=== PATIENT | female | born 1980 | race Caucasian/White ===

== ENCOUNTER 2021-04-21 16:46 | Outpatient (CLI) | payer OTHER, SELFPAY ==
--- NOTE | ~2021-04-21 | MM_ITS ---
EXAMINATION: MM screening avinash BI w mago HISTORY: Screening TECHNIQUE: Craniocaudal and mediolateral oblique 3-D tomosynthesis images were obtained and synthetic 2-D images were generated. CAD analysis was submitted and interpreted. COMPARISON: No prior mammogram is available for comparison at this institution. BREAST PARENCHYMAL COMPOSITION: The breasts are heterogenously dense, which may obscure small masses. FINDINGS: There is a 1.8 cm mass in the upper inner quadrant of the right breast, middle third. There are no suspicious masses, calcifications or architectural distortion in the left breast to suggest m alignancy. IMPRESSION: 1. Right breast mass, upper inner quadrant measuring 1.8 cm, middle third. 2. Additional mammographic views and possible breast ultrasound are recommended. BI-RADS Category 0: Incomplete: Needs additional imaging evaluation. Reviewed, dictated and finalized at location A. IMPRESSION: 1. Right breast mass, upper inner quadrant measuring 1.8 cm, middle third. 2. Additional mammographic views and possible breast ultrasound are recommended . BI-RADS Category 0: Incomplete: Needs additional imaging evaluation.
== END 2021-04-21 16:47 | disposition home or self-care (01) ==
LOC: ANHIMG 16:50
PROVIDERS: PCP Advanced Practice Midwife; Visit Provider Advanced Practice Midwife
DX: Z12.31 Encounter for screening mammogram for malignant neoplasm of breast (principal); R92.8 Other abnormal and inconclusive findings on diagnostic imaging of breast
CPT/HCPCS: 77063; 77067

== ENCOUNTER 2021-05-18 12:23 | Outpatient (CLI) | payer OTHER, SELFPAY ==
--- NOTE | ~2021-05-18 | MMUS_ITS ---
EXAMINATION: MM diagnostic mammo unilat RT, US breast RT limited HISTORY: Right breast mass TECHNIQUE: Additional 3-D tomosynthesis images of the right breast were performed and synthetic 2-D i mages were generated. CAD analysis was submitted and interpreted. High resolution Limited right breas t ultrasound was performed. COMPARISON: 04/21/2021 BREAST PARENCHYMAL COMPOSITION: The breasts are heterogenously dense, which may obscure small masses. FINDINGS: MAMMOGRAPHIC FINDINGS: There is a 2 cm irregular shaped mass medial aspect of the right breast. No significant associated ca lcifications. ULTRASOUND: Limited right breast ultrasound: At 1:00, 3 cm from the nipple, there is an irregular shaped hypoecho ic mass with angular margins, mixed posterior attenuation and no significant internal vascularity. Th is mass measures 1.6 x 1.5 x 1.8 cm and corresponds to the abnormality seen on mammography. IMPRESSION: 1. Irregular shaped 1.8 cm hypoechoic right breast mass at 1:00, 3 cm from the nipple. 2. Ultrasound-guided right breast biopsy recommended. BI-RADS category 4, suspicious findings. Reviewed, dictated and finalized at location A. IMPRESSION: 1. Irregular shaped 1.8 cm hypoechoic right breast mass at 1:00, 3 cm from the nipple. 2. Ultrasound-guided right breast biopsy recommended. BI-RADS category 4, suspicious findings.
== END 2021-05-18 12:24 | disposition home or self-care (01) ==
PROVIDERS: PCP Advanced Practice Midwife; Visit Provider Advanced Practice Midwife
DX: R92.8 Other abnormal and inconclusive findings on diagnostic imaging of breast (principal)
CPT/HCPCS: 76642; 77065

== ENCOUNTER 2022-12-28 08:27 | Outpatient (CLI) | payer OTHER, SELFPAY ==
[2022-12-28 20:13] LABS: Basophils Percent Auto 0.7 % (0.2-1.2); Eosinophils Absolute Auto 0.1 K/mm3 (0-0.3); Eosinophils Percent Auto 2.2 % (0-4.4); Hematocrit 42.7 % (37.0-47.0); Hemoglobin 14.4 g/dL (12.0-15.0); Immature Granulocyte Absolute 0.01 K/mm3 (0.00-0.031); Immature Granulocyte Percent A 0.2 % (0-0.5); Lymphocytes Percent Auto 36.7 % (18.3-44.2); Mean Corpuscular HGB Conc 33.7 g/dl (32-36); Mean Corpuscular Hemoglobin 30.2 pg (26-34); Mean Corpuscular Volume 89.5 fl (80-100); Mean Platelet Volume 10.9 fl (7.4-10.4); Monocytes Absolute Auto 0.4 K/mm3 (0.1-0.6); Monocytes Percent Auto 7.7 % (2.6-8.5); Neutrophils Absolute Auto 2.9 K/mm3 (1.3-6.7); Neutrophils Percent Auto 52.5 % (45.5-73.1); Platelet Count Result 264 k/mm3 (150-375); Red Blood Count 4.77 M/mm3 (4.2-5.4); Red Cell Distribution Width 12.1 % (11.5-14.5); White Blood Count 5.5 K/mm3 (4.5-10.0)
[2022-12-28 20:44] LABS: Vitamin D 25 Hydroxy 61.8 ng/mL
[2022-12-28 20:54] LABS: Alanine Aminotransferase 22 U/L (6-35); Albumin Level 4.1 g/dL (3.5-5.1); Alkaline Phosphatase 49 U/L (38-126); Anion Gap 7 mmol/L (8-16); Aspartate Amino Transferase 32 U/L (14-36); Bilirubin,Total 0.7 mg/dL (0.2-1.3); Blood Urea Nitrogen 9 mg/dL (7-17); Calcium 8.9 mg/dL (8.4-10.2); Carbon Dioxide 26 mmol/L (22-30); Chloride 102 mmol/L (98-107); Cholesterol 239 mg/dL (0-200); Estimated Glomerular Filt Rate > 60; Glucose 89 mg/dL (65-110); HDL Direct 57 mg/dL; Potassium 4.9 mmol/L (3.4-5.0); Sodium 135 mmol/L (137-145); Triglycerides 60 mg/dL (<150)
[2022-12-28 21:05] LABS: LDL Cholesterol Direct 128 mg/dL
== END 2022-12-28 08:28 | disposition home or self-care (01) ==
LOC: ANHGOSHLAB 08:28
PROVIDERS: PCP Family Medicine; Visit Provider Family Medicine
DX: Z00.00 Encounter for general adult medical examination without abnormal findings (principal); E55.9 Vitamin D deficiency, unspecified; E53.8 Deficiency of other specified B group vitamins; F32.9 Major depressive disorder, single episode, unspecified; E78.5 Hyperlipidemia, unspecified
CPT/HCPCS: 36415; 80053; 80061; 82306; 82607; 84443; 85025

== ENCOUNTER 2023-01-25 08:34 | Outpatient (CLI) | payer OTHER, SELFPAY ==
[2023-01-25 18:23] LABS: Cholesterol 215 mg/dL (0-200); HDL Direct 51 mg/dL; Triglycerides 61 mg/dL (<150)
[2023-01-25 18:33] LABS: LDL Cholesterol Direct 128 mg/dL
== END 2023-01-25 08:35 | disposition home or self-care (01) ==
LOC: ANHGOSHLAB 08:36
PROVIDERS: PCP Family Medicine
DX: E66.9 Obesity, unspecified (principal)
CPT/HCPCS: 36415; 80061

== ENCOUNTER 2024-04-30 08:16 | Outpatient (CLI) | payer OTHER, SELFPAY ==
[2024-04-30 12:56] LABS: Alanine Aminotransferase 12 U/L (6-35); Albumin Level 3.8 g/dL (3.5-5.1); Alkaline Phosphatase 37 U/L (38-126); Anion Gap 3 mmol/L (4-12); Aspartate Amino Transferase 51 U/L (14-36); Bilirubin,Total 0.6 mg/dL (0.2-1.3); Blood Urea Nitrogen 8 mg/dL (7-17); Calcium 8.5 mg/dL (8.4-10.2); Carbon Dioxide 27 mmol/L (22-30); Chloride 107 mmol/L (98-107); Cholesterol 176 mg/dL (0-200); Estimated Glomerular Filt Rate > 60; Glucose 87 mg/dL (65-110); HDL Direct 58 mg/dL; Potassium 4.2 mmol/L (3.4-5.0); Sodium 137 mmol/L (137-145); Triglycerides 60 mg/dL (<150)
[2024-04-30 13:07] LABS: LDL Cholesterol Direct 98 mg/dL
[2024-04-30 13:12] LABS: Vitamin D 25 Hydroxy 72.9 ng/mL
[2024-04-30 18:47] LABS: Basophils Percent Auto 0.6 % (0.2-1.2); Eosinophils Absolute Auto 0.1 K/mm3 (0-0.3); Eosinophils Percent Auto 2.7 % (0-4.4); Hematocrit 39.2 % (37.0-47.0); Hemoglobin 13.2 g/dL (12.0-15.0); Immature Granulocyte Absolute 0.01 K/mm3 (0.00-0.031); Immature Granulocyte Percent A 0.2 % (0-0.5); Lymphocytes Absolute Auto 1.77 K/mm3 (0.9-3.2); Lymphocytes Percent Auto 36.6 % (18.3-44.2); Mean Corpuscular HGB Conc 33.7 g/dl (32-36); Mean Corpuscular Hemoglobin 31.1 pg (26-34); Mean Corpuscular Volume 92.2 fl (80-100); Mean Platelet Volume 11.2 fl (7.4-10.4); Monocytes Absolute Auto 0.3 K/mm3 (0.1-0.6); Monocytes Percent Auto 6.6 % (2.6-8.5); Neutrophils Absolute Auto 2.6 K/mm3 (1.3-6.7); Neutrophils Percent Auto 53.3 % (45.5-73.1); Platelet Count Result 211 k/mm3 (150-375); Red Blood Count 4.25 M/mm3 (4.2-5.4); Red Cell Distribution Width 12.2 % (11.5-14.5); White Blood Count 4.8 K/mm3 (4.5-10.0)
== END 2024-04-30 08:17 | disposition home or self-care (01) ==
LOC: ANHWCLAB 08:20
PROVIDERS: PCP Family Medicine; Visit Provider Student in an Organized Health Care Education/Training Program
DX: E55.9 Vitamin D deficiency, unspecified (principal); Z13.0 Encounter for screening for diseases of the blood and blood-forming organs and certain disorders involving the immune mechanism; E78.5 Hyperlipidemia, unspecified; Z00.00 Encounter for general adult medical examination without abnormal findings; Z13.29 Encounter for screening for other suspected endocrine disorder
CPT/HCPCS: 36415; 80053; 80061; 82306; 84443; 85025

== ENCOUNTER 2024-07-09 09:00 | Outpatient (RCR) | payer MEDICAID, OTHER, SELFPAY ==
--- NOTE | 2024-04-16 09:49 | OPREHPOC ---
Outpatient Therapy Plan of Care This is a Multidisciplinary Plan of Care that may contain components documented by all disciplines (PT, OT, and ST.) PT Problem 1 PT Problem #1 Knowledge Deficit PT Goal 1 Goal 1. Patient will perform independent HEP 2. Patient will verbalize urge suppression strategies Target Visit 3 PT Problem 2 PT Problem #2 Pain PT Goal 1 Goal 1. Patient will report abdominal pain no higher than 1/10 Target Visit 6 PT Problem 3 PT Problem #3 Impaired Strength PT Goal 1 Goal 1. Improve pelvic floor strength to 4/5 to decrease incontinence 2. Improve pelvic floor endurance to 10 seconds to decrease incontinence Target Visit 6 PT Problem 4 PT Problem #4 Impaired Functional ADLs PT Goal 1 Goal 1. Patient will report no more than 1 instance of incontinence per month 2. Patient will be able to hold urge to void at least 30 minutes Target Visit 6
--- NOTE | 2024-04-16 09:49 | PTOPEVAL1 ---
Assessment and note entered by Nancy Mccord DPT Evaluation Information Assessment Status Evaluation Subjective Information Pt reports surgery on March 19 to remove cysts. Also reports urinary incontinence. Some mild pelvic pain at times but thinks it is more related to constipation. Voids less than 10 times a day and mostly 1 time at night. Can hold urge only a few minutes at a time. Incontinence on average once a week and is a small volume. Has not had to change clothes and usually does not wear a liner. Denies pain with urination. BM frequency may vary, every other day on average over the last week. Uses stool softeners a lot and has tried Miralax but not consistently. Highest abdominal pain 5/10 and lowest 0/10. Reports mild pain with previous pap smears and mild pain after most recent surgery . Pt has been 1 time, vaginal delivery with some tearing. 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 Patient goal: improve strength of pelvic floor, stop urine leakage Return to MD not scheduled currently. Reported Pain Level Pain Score 0: Self Report Assessment PT Clinical Summary The patient is presenting to skilled therapy with a history of urinary incontinence, urgency, and constipation/abdominal pain. She presents with increased pelvic floor muscle tone and decreased pelvic floor strength and endurance, as well as overall decreased core strength and pain with abdominal palpation. These impairments are contributing to her pain and incontinence and will benefit from therapy to address her impairments and to improve function. Plan of Care Interventions Electrical Stimulation,Hot Pack/Cold Pack,Manual Therapy,Neuro Re-education,Patient/Caregiver Education,Therapeutic Activities,Therapeutic Exercise PT Services Indicated Yes Treatment Frequency and 1 time a week for 6 visits Duration These treatments will address the objective and functional deficits as defined above. The patient will be advanced safely and appropriately in order for the patient to progress towards his/her prior level of function. Additional exercises will be introduced and as well as a comprehensive home exercise program upon discharge, if needed, ?to ensure carryover of functional gains achieved in the clinic. This treatment plan has been reviewed and agreement upon by the patient.
--- NOTE | 2024-05-07 09:00 | OPREHPOC ---
Outpatient Therapy Plan of Care This is a Multidisciplinary Plan of Care that may contain components documented by all disciplines (PT, OT, and ST.) PT Problem 1 PT Problem #1 Knowledge Deficit PT Goal 1 Goal 1. Patient will perform independent HEP 2. Patient will verbalize urge suppression strategies Target Visit 3 Progress Met PT Problem 2 PT Problem #2 Pain PT Goal 1 Goal 1. Patient will report abdominal pain no higher than 1/10 Target Visit 6 Progress Partially Met Comment improved to 3 PT Problem 3 PT Problem #3 Impaired Strength PT Goal 1 Goal 1. Improve pelvic floor strength to 4/5 to decrease incontinence 2. Improve pelvic floor endurance to 10 seconds to decrease incontinence Target Visit 6 Progress Partially Met Comment 1. not met 2. 2 seconds PT Problem 4 PT Problem #4 Impaired Functional ADLs PT Goal 1 Goal 1. Patient will report no more than 1 instance of incontinence per month 2. Patient will be able to hold urge to void at least 30 minutes Target Visit 6 Progress Partially Met Comment 1. 1 per week 2. 5 minutes
--- NOTE | 2024-05-07 09:00 | PTOPPROG ---
Assessment and note entered by Nancy Mccord DPT Evaluation Information Assessment Status Progress Subjective Information Pt reports feeling better since starting therapy. Urinary incontinence is happening less often, 1 time in the last week. Highest abdominal pain 3/10 and lowest 0/10. Also not noticing the sharp pain anymore. BM 3-4 times over the last 7 days. Can hold urge to void 5 minutes. Assessment PT Clinical Summary The patient has made some progress in therapy. She reports overall decreased abdominal pain to 3/10 highest, decreased frequency of incontinence and slightly improved ability to hold urge to void. She demonstrates improved pelvic floor endurance but continues to display increased muscle tone and weakness. Due to her progress but continued impairments and pain/incontinence, she will benefit from further therapy to return to prior level of function. Plan of Care Interventions Electrical Stimulation,Hot Pack/Cold Pack,Manual Therapy,Neuro Re-education,Patient/Caregiver Education,Therapeutic Activities,Therapeutic Exercise PT Services Indicated Yes Treatment Frequency and 1 time a week for 4 visits (pending insurance Duration change on May 20) These treatments will address the objective and functional deficits as defined above. The patient will be advanced safely and appropriately in order for the patient to progress towards his/her prior level of function. Additional exercises will be introduced and as well as a comprehensive home exercise program upon discharge, if needed, ?to ensure carryover of functional gains achieved in the clinic. This treatment plan has been reviewed and agreement upon by the patient.
--- NOTE | 2024-05-14 10:06 | PCPTNOTE ---
Patient called to cancel appointment due to insurance issues.
--- NOTE | 2024-06-10 10:01 | PCPTNOTE ---
Patient called to cancel appointment on 06/10/24 due to personal conflict.
--- NOTE | 2024-07-11 14:25 | PCPTNOTE ---
This treatment is being continued on visit number [id number]. Please see documentation on both accounts to view progress. Completed interventions, outcomes, and problems have been marked as Inactive to facilitate the copying of the Care plan routine for recurring accounts.
== END 2024-07-11 13:18 | disposition home or self-care (01) ==
LOC: ANHPT 09:00
PROVIDERS: PCP Family Medicine; Visit Provider Obstetrics & Gynecology
DX: N81.89 Other female genital prolapse (principal); R10.31 Right lower quadrant pain
CPT/HCPCS: 36415; 80053; 80061; 82306; 84443; 85025; 97110; 97112; 97140; 97161; 97530

== ENCOUNTER 2024-07-30 08:30 | Outpatient (RCR) | payer MEDICAID, SELFPAY ==
--- NOTE | 2024-07-11 14:26 | PCPTNOTE ---
The treatment documented on this account is a continuation of the treatment documented on visit number [id number]. Please see documentation on both accounts to view progress. The Plan of Care has been transitioned and updated within the new V#. I have addressed and agree with the discipline specific Problems, Interventions, and Goals for the current certification period. Completed interventions, outcomes, and problems have been marked as Inactive to facilitate the copying of the Care plan routine for recurring accounts.
--- NOTE | 2024-07-11 14:26 | OPREHPOC ---
Outpatient Therapy Plan of Care This is a Multidisciplinary Plan of Care that may contain components documented by all disciplines (PT, OT, and ST.) PT Problem 1 PT Problem #1 Knowledge Deficit PT Goal 1 Goal / Goal Update 1. Patient will perform independent HEP 2. Patient will verbalize urge suppression strategies Target Visit 3 Progress Met PT Problem 2 PT Problem #2 Pain PT Goal 1 Goal / Goal Update 1. Patient will report abdominal pain no higher than 1/10 Target Visit 6 Progress Partially Met PT Problem 3 PT Problem #3 Impaired Strength PT Goal 1 Goal / Goal Update 1. Improve pelvic floor strength to 4/5 to decrease incontinence 2. Improve pelvic floor endurance to 10 seconds to decrease incontinence Target Visit 6 Progress Partially Met PT Problem 4 PT Problem #4 Impaired Functional ADLs PT Goal 1 Goal / Goal Update 1. Patient will report no more than 1 instance of incontinence per month 2. Patient will be able to hold urge to void at least 30 minutes Target Visit 6 Progress Partially Met
--- NOTE | 2024-07-30 09:05 | OPREHPOC ---
Outpatient Therapy Plan of Care This is a Multidisciplinary Plan of Care that may contain components documented by all disciplines (PT, OT, and ST.) PT Problem 1 PT Problem #1 Knowledge Deficit PT Goal 1 Goal / Goal Update 1. Patient will perform independent HEP 2. Patient will verbalize urge suppression strategies Target Visit 3 Progress Met PT Problem 2 PT Problem #2 Pain PT Goal 1 Goal / Goal Update 1. Patient will report abdominal pain no higher than 1/10 Target Visit 6 Progress Met PT Problem 3 PT Problem #3 Impaired Strength PT Goal 1 Goal / Goal Update 1. Improve pelvic floor strength to 4/5 to decrease incontinence 2. Improve pelvic floor endurance to 10 seconds to decrease incontinence update 07/30/24 1. improved to 3/5 2. 2 seconds Target Visit 8 Progress Partially Met PT Problem 4 PT Problem #4 Impaired Functional ADLs PT Goal 1 Goal / Goal Update 1. Patient will report no more than 1 instance of incontinence per month 2. Patient will be able to hold urge to void at least 30 minutes update 07/30/24 1. 1 in the last 2 weeks 2. no change Target Visit 8 Progress Partially Met
--- NOTE | 2024-07-30 09:05 | PTOPPROGNS ---
Assessment and note entered by Nancy Mccord DPT Evaluation Information Assessment Status Progress Subjective Information Pt reports she thinks she can perform pelvic floor contractions with more consistency. One instance of incontinence over the last week or two. No abdominal pain recently. Can hold urge to void 5 minutes. Assessment PT Clinical Summary The patient has continued to make some progress in therapy. She reports no recent abdominal pain, demonstrates improved pelvic floor strength, and reports decreased frequency of incontinence. She continues to lack pelvic floor strength and endurance and continues to demonstrate increased pelvic muscle tone. Patient plans to try HEP independently for several weeks in order to get pelvic wand for use at home, will call to schedule further therapy if symptoms worsen. Plan of Care Interventions Manual Therapy,Neuro Re-education,Patient/ Caregiver Education,Therapeutic Activities, Therapeutic Exercise PT Services Indicated Yes Treatment Frequency and hold therapy, patient to call in the next 4 weeks Duration if symptoms get worse These treatments will address the objective and functional deficits as defined above. The patient will be advanced safely and appropriately in order for the patient to progress towards his/her prior level of function. Additional exercises will be introduced and as well as a comprehensive home exercise program upon discharge, if needed, ?to ensure carryover of functional gains achieved in the clinic. This treatment plan has been reviewed and agreement upon by the patient.
--- NOTE | 2024-09-05 15:02 | PTOPDC ---
Assessment and note entered by Nancy Mccord DPT Evaluation Information Assessment Status Discharge - Pt Not Present Subjective Information - Assessment PT Clinical Summary The patient has not called to schedule more visits at this time and has not been in therapy since 09/12. She will be discharged this date. Plan of Care PT Services Indicated No
== END 2024-10-14 23:59 | disposition home or self-care (01) ==
LOC: ANHPT 08:30
PROVIDERS: PCP Family Medicine; Visit Provider Obstetrics & Gynecology
DX: N81.89 Other female genital prolapse (principal); R10.31 Right lower quadrant pain
CPT/HCPCS: 97112; 97140; 97530

== ENCOUNTER 2025-05-07 08:09 | Outpatient (CLI) | payer OTHER, SELFPAY ==
--- OUTSIDE RECORDS SUMMARY | 2025-05-07 08:14 | XMS_ITS | Referral Summary ---
Author Organization [facility] Address [address] [place] [address] Care Team Providers Care Interface Control Officer Name Role Phone Kamini Fitzpatrick CNM Unavailable [phone], Notinfile Primary Care Provider Unavail able Sarah Clayton MD Unavailable [phone] Allergies No known active allergies Medications buPROPion XL (WELLBUTRIN XL) 300 mg 24 hr tabletIndicatio ns:Anxiety with Depression Take 1 tablet (300 mg total) by mouth every morning Active Lactobacillus acidophilus (Probiotic) 10 billion cell capsule Take 1 capsule by mouth every morning Active levonorgestreL (MIRENA) IUD 1 Intra Uterine Device by intrauterine route once Active phentermine (ADIPEX-P) 37.5 mg tablet Take 1 tablet (37.5 mg total) by mouth as needed 2 Active multivit with minerals/lutein (MULTIVITAMIN 50 PLUS ORAL) Take 1 tablet by mouth every morning Active cholecalciferol , vitamin D3, (VITAMIN D3 ORAL) Take 1 tablet by mouth every morning Active ibuprofen (ADVIL,MOTRIN) 200 mg tab/cap Take 3 tablet/capsule (600 mg total) by mouth every 6 (six) hours as needed for pain Active Active Problems Problem Noted Date Diagnosed Date 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 2-4 times a month 10/10/2022 Q2: How many drinks containi ng alcohol do you have on a typical day when you are drinking? 1 or 2 10/10/2022 Q3: How often do you have si x or more drinks on one occasion? 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 Gender Identity Female 06/04/2021 4:37 PM CDT Sexual Orientation Straight 06/04/2021 4: 37 PM CDT Last Filed Vital Signs Vital Sign Reading Time Taken Comments Blood Pressure 97/61 10/10/2022 10:40 AM SOLAR FIELD SERVICE TECHNICIAN Pulse 82 10/10/2022 10:40 AM SOLAR FIELD SERVICE TECHNICIAN Temperature 36.7 C (98.1 F) 10/10/2022 10:05 AM SOLAR FIELD SERVICE TECHNICIAN Respiratory Rate 18 10/10/2022 10:40 AM SOLAR FIELD SERVICE TECHNICIAN Oxygen Saturation 100% 10/10/2022 10:40 AM SOLAR FIELD SERVICE TECHNICIAN Inhaled Oxygen Concentration - - Weight 61.2 kg (135 lb) 08/26/2024 4:23 PM CDT Height 160 cm (5' 3) 08/26/2024 4:23 PM CDT Body Mass Index 23.91 08/26/2024 4:23 PM CDT Plan of Treatment Not on file Procedures Procedure Name Priority Date/Time Associated Diagnosis Comments SCREENING MAMMOGRAM BILATERAL W YORDAN Schedule Routine, Read Routine (OP Routine) 06/07/2024 10:30 AM CDT Screening mammogram, encounter for from Last 3 Months or Most Recently Relevant to Health Maintenance Results * Screening Mammogram Bilateral W Yordan (06/07/2024 10:30 AM CDT) Anatomical Region Laterality Modality Breast Bilateral Mammography Narrative 06/10/2024 10:50 AM CDT Mammogram Technique: Bilateral Digital Breast Tomosynthesis, Bilateral C-view 2D Screening mammogram. Views obtained: bilateral craniocaudal and bilateral mediolateral oblique. Computer Aided Detection was performed. Mammogram Findings: The present examination has been compared to prior imaging studies performed at [facility]. [facility] on 05/18/2021, and at [facility] on 05/27/2022 and 06/02/2023. The breasts are extremely dense, which lowers the sensitivity of mammography. There is no suspicious abnormality in either breast. Impression: There is no mammographic evidence of malignancy. Annual screening mammography is recommended. Consider breast MRI for supplemental screening given the patient's extremely dense breast tissue. OVERALL FINAL ASSESSMENT: BI-RADS CATEGORY 1: Negative. Procedure Note Alryn Ellis MD - 06/10/2024 Mammogram Technique: Bilateral Digital Breast Tomosynthesis, Bilateral C-view 2D Screening mammogram. Views obtained: bilateral craniocaudal and bilateral mediolateral oblique. Computer Aided Detection was performed. Mammogram Findings: The present examination has been compared to prior imaging studies performed at [facility]. [facility] on 05/18/2021, andat [facility] on 05/27/2022 and 06/02/2023. The breasts are extremely dense, which lowers the sensitivity of mammography. There is no suspicious abnormality in either breast. Impression: There is no mammographic evidence of malignancy. Annual screening mammography is recommended. Consider breast MRI for supplemental screening given the patient's extremely dense breasttissue. OVERALL FINAL ASSESSMENT: BI-RADS CATEGORY 1: Negative. us Self Screening Mammogram IMG MAMMO PROCEDURES Fi nal Result from Last 3 Months or Most Recently Relevant to Health Maintenance Insurance IDPA IDPA Care Teams Interface Control Officer Relationship Specialty Start Date End Date Unknown, Notinfile PCP - General 06/07/21 Kamini Fitzpatrick CNM Nurse Practitioner Midwifery 05/19/21 Sarah Clayton MD [id number] [address] Surgeon Surgical Oncology 10/10/22
--- OUTSIDE RECORDS SUMMARY | 2025-05-07 08:14 | XMS_ITS | Clinical Summary ---
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 Gender Identity Not on file Sexual Orientation Not on file Plan of Treatment Health Maintenance Due Date Last Done Comments Hepatitis C Virus (HCV) Screening 1981 TdaP Immunization 1981 Hepatitis B Immunization (1 of 3 - 19+ 3-dose series) 2000 Pap Smear 2002 Cervical Cancer Screening (CCS) 2011 HPV/Cotest 2011 Discussion re Starting/Frequ ency of Mammograms 2021 Influenza Immunization (#1) 2024 09/05/2019 SARS-COV-2 Immunization ( season) 2024 12/15/2020 Respiratory Syncytial Virus (RSV) Immunization (Adult) (1 - 1-dose 75+ series) 2056 DTaP/Tdap/Td Immunization Discontinued 05/05/2008 Meningococcal Immunization (ACWY) Aged Out No longer eligible based on patient's age to complete this topic Pneumococcal Immunization Combined Aged Out No longer eligible b ased on patient's age to complete this topic Rotavirus Immunization Aged Out No lo nger eligible based on patient's age to complete this topic
--- OUTSIDE RECORDS SUMMARY | 2025-05-07 08:14 | XMS_ITS | Clinical Summary ---
Author Organization [facility] Address [address] [place] [address] Care Team Providers Care Traffic Director Name Role Phone Kamini Fitzpatrick CNM Unavailable [phone] Unknown, Notinfile Primary Care Provider Unavail able Sarah Clayton MD Unavailable Allergies No known active allergies Medications buPROPion [...] of right breast 06/07/2021 Breast mass 06/07/2021 Surgical History Surgery Date Site/Laterality Comments BREAST BIOPSY 06/07/2021 Right Medical History Medical History Date Comments Generalized headaches Depression Family History Medical History Relation Name Comments Melanoma Maternal Grandfather No Known Problems Mother Lung cancer Paternal Grandmother Relation Name Status Comments Maternal Grandfather Mother Paternal Grandmother Social History Tobacco Use Types Packs/Day Years [...] on file Legal Sex Female 2:50 PM JIG FILLER Gender Identity Female 06/04/2021 4:37 PM CDT Sexual Orientation Straight 06/04/2021 4: 37 PM CDT Obstetrics History Last Filed Vital Signs Vital Sign Reading Time Taken Comments Blood Pressure 97/61 10/10/2022 10:40 AM JIG FILLER Pulse 82 10/10/2022 10:40 AM JIG FILLER Temperature 36.7 C (98.1 F) 10/10/2022 10:05 AM JIG FILLER Respiratory Rate 18 10/10/2022 10:40 AM JIG FILLER Oxygen Saturation 100% 10/10/2022 10:40 AM JIG FILLER Inhaled Oxygen Concentration - - Weight 61.2 kg (135 lb) 08/26/2024 4:23 PM CDT Height 160 cm (5' 3) 08/26/2024 4:23 PM CDT Body Mass Index 23.91 08/26/2024 4:23 PM CDT Plan of Treatment Health Maintenance Due Date Last Done Comments Cervical Cancer Screening 1981 Depression Screening 1981 Hepatitis C Screening 1981 Hepatitis B Screening 1999 Regular Well Visit/Exam 18-64 1999 DTaP/Tdap/Td Vaccine (6 - Tdap) 05/06/2008 05/05/2008, 06/08/1995, 06/02/1986, Additional history exists Covid-19 Vaccine ( season) 2024 01/12/2021, 12/15/2020 Breast Cancer Screening-Mammogram 06/07/2025 06/07/2024, 06/02/2023, 05/27/2022 Influenza Vaccine (Season Ended) 2025 09/05/2019 Varicella Vaccines Completed 07/03/1991, 06/29/1982 HPV Vaccines Aged Out No longer eligi ble based on patient's age to complete this topic Pneumococcal vaccine <65 Aged Out No longer eligible based on patient's age to complete this topic Procedures Procedure Name Priority Date/Time Associated Diagnosis [...] compared to prior imaging studies performed at [facility] on 05/18/2021, and at [facility] on 05/27/2022 and 06/02/2023. The breasts are extremely dense, which lowers the sensitivity of mammography. There is no suspicious abnormality in either breast. Impression: There is no mammographic evidence of malignancy. Annual screening mammography is recommended. Consider breast MRI for supplemental screening given the patient's extremely dense breast tissue. OVERALL FINAL ASSESSMENT: BI-RADS CATEGORY 1: Negative. Procedure Note Arlyn Ellis MD - 06/10/2024 Mammogram Technique: Bilateral Digital Breast Tomosynthesis, Bilateral C-view 2D Screening mammogram. Views obtained: bilateral craniocaudal and bilateral mediolateral oblique. Computer Aided Detection was performed. Mammogram Findings: The present examination has been compared to prior imaging studies performed at [facility] on 05/18/2021, [facility] on 05/27/2022 and 06/02/2023. The breasts are [...] Most Recently Relevant to Health Maintenance Insurance [facility] Care Teams Traffic Director Relationship Specialty Start Date End Date Unknown, Notinfile PCP - General 06/07/21 Kamini Fitzpatrick CNM Nurse Practitioner Midwifery 05/19/21 Sarah Clayton MD [id number] [address] Surgeon Surgical Oncology 10/10/22
--- OUTSIDE RECORDS SUMMARY | 2025-05-07 08:14 | XMS_ITS | Clinical Summary ---
Author Organization [facility] Address [address] [place] [address] Care Team Providers Care Cyber Security Systems Engineer Name Role Phone Unavailable Primary Care Provider Unavailabl e Source Comments [facility],non-owned Affiliates and Associated Physician Practices is amultiple site organization consisting of ambulatory clinics and hospital sitesin [place], [place], [place] and [place]. This disclosure is being madepursuant to the Care Everywhere program and may not contain all information available regarding this patient. 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 Gender Identity Not on file Sexual Orientation Not on file Plan of Treatment Health Maintenance Due Date Last Done Comments LIPID TESTING 1981 PAP SMEAR 1981 HIV SCREENING 1996 HEPATITIS C SCREENING 03/25/1999 DTAP/TDAP/TD VACCINES (1 - Tdap) 2000 HEPATITIS B VACCINE (1 of 3 - 19+ 3-dose series) 2000 COVID-19 VACCINE (3 - 2023-2 5 season) 2024 01/12/2021, 12/15/2020 DEPRESSION SCREENING 11/20/2024 11/16/2023 MAMMOGRAM 06/02/2025 06/02/2023, 06/02/2023, 05/27/2022 INFLUENZA VACCINE (Season Ended) 2025 09/05/2019 ZOSTER VACCINE (1 of 2) 2031 HIB VACCINE Aged Out No longer eligi ble based on patient's age to complete this topic HPV VACCINE Aged Out No longer eligi ble based on patient's age to complete this topic MENINGOCOCCAL (Group B) VACCINE SHARED DECISION-MAKING Aged Out No longer eligible based on patient's age to complete this topic MENINGOCOCCAL GROUPS A/C/Y/W VACCINE Aged Out No longer eligible b ased on patient's age to complete this topic PNEUMOCOCCAL VACCINE Aged Out No long er eligible based on patient's age to complete this topic Insurance
[2025-05-07 18:51] LABS: Basophils Percent Auto 0.4 % (0.2-1.2); Eosinophils Absolute Auto 0.1 K/mm3 (0-0.3); Eosinophils Percent Auto 0.9 % (0-4.4); Hemoglobin 14.1 g/dL (12.0-15.0); Immature Granulocyte Absolute 0.01 K/mm3 (0.00-0.031); Immature Granulocyte Percent A 0.2 % (0-0.5); Lymphocytes Absolute Auto 1.34 K/mm3 (0.9-3.2); Lymphocytes Percent Auto 25.3 % (18.3-44.2); Mean Corpuscular HGB Conc 32.8 g/dl (32-36); Mean Corpuscular Hemoglobin 30.5 pg (26-34); Mean Corpuscular Volume 93.1 fl (80-100); Mean Platelet Volume 10.6 fl (7.4-10.4); Monocytes Absolute Auto 0.3 K/mm3 (0.1-0.6); Monocytes Percent Auto 5.5 % (2.6-8.5); Neutrophils Absolute Auto 3.6 K/mm3 (1.3-6.7); Neutrophils Percent Auto 67.7 % (45.5-73.1); Platelet Count Result 238 k/mm3 (150-375); Red Blood Count 4.62 M/mm3 (4.2-5.4); Red Cell Distribution Width 12.2 % (11.5-14.5); White Blood Count 5.3 K/mm3 (4.5-10.0)
[2025-05-07 19:10] LABS: Alanine Aminotransferase 12 U/L (6-35); Albumin Level 4.3 g/dL (3.5-5.1); Alkaline Phosphatase 41 U/L (38-126); Anion Gap 8 mmol/L (4-12); Aspartate Amino Transferase 33 U/L (14-36); Bilirubin,Total 0.5 mg/dL (0.2-1.3); Blood Urea Nitrogen 9 mg/dL (7-17); Carbon Dioxide 25 mmol/L (22-30); Chloride 102 mmol/L (98-107); Cholesterol 232 mg/dL (0-200); Estimated Glomerular Filt Rate > 60; Glucose 94 mg/dL (65-110); HDL Direct 78 mg/dL; Sodium 135 mmol/L (137-145); Triglycerides 48 mg/dL (<150)
[2025-05-07 19:22] LABS: LDL Cholesterol Direct 113 mg/dL
[2025-05-07 19:40] LABS: Hemoglobin A1C 4.9 % (<5.7)
[2025-05-08 08:49] LABS: DHEA-Sulfate 273 mcg/dL (15-205); Progesterone 2.4 ng/mL; Sex Hormone Binding Globulin 84 nmol/L (17-124)
[2025-05-11 17:28] LABS: Testosterone Total 27 ng/dL (2-45)
== END 2025-05-07 08:10 | disposition home or self-care (01) ==
LOC: ANHGOSHLAB 08:10
PROVIDERS: PCP Student in an Organized Health Care Education/Training Program; Visit Provider Student in an Organized Health Care Education/Training Program
DX: E78.5 Hyperlipidemia, unspecified (principal); F32.9 Major depressive disorder, single episode, unspecified; R53.83 Other fatigue; Z13.0 Encounter for screening for diseases of the blood and blood-forming organs and certain disorders involving the immune mechanism; E55.9 Vitamin D deficiency, unspecified
CPT/HCPCS: 36415; 80053; 80061; 82306; 82533; 82607; 82627; 82670; 83036; 84144; 84270; 84403; 84439; 84443; 85025